=== PATIENT | female | born 1945 | race Caucasian/White ===

== ENCOUNTER → 2017-04-11 | Day surgery (SDC) | payer MEDICARE, BC ==
[~2017-04-11] MED LIST: ACETAMINOPHEN; ACETAMINOPHEN PO; ACUVAIL1 EACH OS; ADVIL200 M2 PO; AMITRYPTYLINE; AMLODIPINE BESYL5 MG PO; ANEXSIA 7.5/3251 TA1 PO; ANTI HISTAMINE; ANTIVERT PO; ARTIFICIAL TEAR15 M9 OU; ARTIFICIAL TEAR15 ML OU; ASPIRIN PO; ASPIRIN81 M2 PO; ATACAND PO; ATIVAN PO; B COMPLEX/FOLIC1 TAB; B-121000 MC1 PO; BACLOFEN10 MG; BACLOFEN10 MG PO; BACLOFEN20 M1 PO; BENADRYL; BENADRYL ALLERG25 M1 PO; BENADRYL25 M3 PO; BUMEX1 MG PO; CALCIUM + D 6001 TA1 PO; CARAFATE1 GM PO; CEFTIN500 MG PO; CELEXA PO; CELEXA20 MG PO; CIPRO PO; CLARITIN10 M2 PO; CYMBALTA PO; DETROL LA; DILAUDID2 MG/ML IJ; DITROPAN PO; DITROPAN XL PO; DITROPAN5 MG PO; DOCUSATE SODIU100 MG PO; DOMPERIDONE; DURAGESIC25 MCG EXT; ENABLEX15 MG PO; ENDOCET 10-3251 TAB PO; ENDOCET PO; ENFOLAST TABLE1 EACH PO; EXCEDRIN MIGRAI1 TA1; FENTANYL; FERRO-TIME325 MG PO; FERROUS SULFATE1 TAB PO; FLEXERIL; FLEXERIL PO; FLONASE 0.05% N16 G1; GABAPENTIN300 M2 PO; GENTLE LAXATIVE10 MG PR; HYDROCODON-ACE1 EAC5 PO; HYDROXYZINE HCL25 M1 PO; IBUPROFEN M200 M1 PO; IBUPROFEN PO; IMITREX PO; IMITREX50 MG PO; IMMODIUM1 MG/5 M1 PO; IMODIUM2 MG PO; IPRATR-ALBUTEROL3 ML INH; IRON1 TA1 PO; IRON325 ( 651 PO; KCL PO; KLONOPIN PO; KLONOPIN0.5 M3 PO; KLONOPIN0.5 MG PO; LAMICTAL PO; LIBRIUM; LIPITOR40 MG PO; LISINOPRIL-HCTZ1 T14 PO; LISINOPRIL20 MG PO; LITHIUM PO; LORATADINE PO; LORAZEPAM0.5 MG PO; LORTAB 10/500 T1 TAB; METAMUCIL1 PKT PO; MIRALAX119 GM; MIRALAX17 G2 PO; MIRTAZAPINE7.5 MG PO; MOBIC PO; NAPROSYN500 MG PO; NAPROXEN250 MG PO; NASONEX17 GM; NEURONTIN PO; NEURONTIN100 MG PO; NEURONTIN300 MG PO; NEXIUM; NEXIUM PO; NEXIUM20 MG PO; NORVASC PO; ONDANSETRON ODT4 MG PO; OXYCODONE HCL10 MG PO; OXYCODONE-ACET1 EAC1 PO; PAIN PUMP; PANTOPRAZOLE SO40 MG PO; PERCOCET10 PO; PERCOLONE5 MG PO; PHENERGAN25 MG PO; POTASSIUM99 M1 PO; PRAVASTATIN SOD40 MG PO; PREMARIN; PREVACID PO; PRILOSEC; PRILOSEC20 MG PO; PRINIVIL20 M1 PO; PROMETHAZINE12.5 MG PO; PROTONIX PO; PROZAC PO; PYRIDIUM PO; REGLAN10 MG PO; REMERON SOLTAB15 M1 PO; REMERON SOLTAB45 MG PO; REMERON30 MG PO; REMERON45 MG PO; SALINE FOR SEN OD; SANCTURA XR PO; SENNA CONCENTR8.6 MG PO; SENNA LAXATIVE1 TAB PO; SENNA PLUS TABL1 TAB PO; SEROQUEL PO; SEROQUEL50 M1 PO; SYSTANE LIQUID15 ML OP; TOPROL XL100 MG PO; VISTARIL PO; VIT B-12 IM; VITAMIN B122500 MCG; XARELTO20 MG PO; ZESTORETIC 20/11 TAB PO; ZOLOFT; [UNRECOGNIZED DRUG - SUPPLY]
--- NOTE | ~2017-04-11 | OR ---
Unit #: [id number] #: [id number] Patient: BEULAH ETIENNE [id number] [address] [address] [id number] MR#: [id number] NAME: BEULAH ETIENNE ROOM: Date of Procedure: 04/11/2017 Admission Date: 04/11/2017 Surgeon: Kana Carpenter M.D. : 1945 Attending Physician: Kana Carpenter M.D. Primary Care Physician: Magaly Riggs D.O. OPERATIVE REPORT JOB NOTE: CC: [facility] PREOPERATIVE DIAGNOSES Back pain, radiculopathy, degenerative disk disease, lumbar spinal stenosis. POSTOPERATIVE DIAGNOSES Back pain, radiculopathy, degenerative disk disease, lumbar spinal stenosis. PROCEDURE PERFORMED Lumbar epidural steroid injection with intravenous sedation and fluoroscopic guidance for needle localization. INDICATIONS FOR PROCEDURE The patient is a 72-year-old female with worsening back and right greater than left lower extremity pain with some dorsiflexion weakness. She has multilevel significant degenerative disk and spine disease. She is a nonsurgical candidate. P.r.n. epidural steroid injections have been helpful. Last injection was done 3 months ago. Prior to that, she had injection done about 8 months before for the same issue. DESCRIPTION OF PROCEDURE The patient was placed in a seated position. Standard monitors were applied. 1 mg of Versed was given for sedation and anxiolysis, which were adequate. Vital signs remained stable. Sterile prep and drape then of the lumbar area was performed. The skin then at the L4-L5 level was localized with 1% lidocaine. An 18-gauge Post.Bid.Shiptead needle was then advanced via loss of resistance technique in toward the epidural space. After confirming proper positioning with fluoroscopy and radiographic contrast, 80 mg of Depo-Medrol and 4 mL of 0.125% bupivacaine were deposited. The patient tolerated the procedure otherwise well and was discharged to the recovery room in stable condition. Dictated by... Lavern Harden/anthony TD: 04/11/2017 22:43 Unit #: [id number] #: [id number] Patient: BEULAH ETIENNE JOB #: [id number] OPERATIVE REPORT Page 1 of 1 X Kana Carpenter MD X PROCEDURE OPERATIVE NOTE
== END | disposition home or self-care (01) ==
LOC: CCSC 10:47
DX: M51.16 Intervertebral disc disorders with radiculopathy, lumbar region (principal); M48.06 Spinal stenosis, lumbar region; I10 Essential (primary) hypertension; E11.9 Type 2 diabetes mellitus without complications; G43.909 Migraine, unspecified, not intractable, without status migrainosus; J44.9 Chronic obstructive pulmonary disease, unspecified; F41.9 Anxiety disorder, unspecified; F32.9 Major depressive disorder, single episode, unspecified; M19.90 Unspecified osteoarthritis, unspecified site; K21.9 Gastro-esophageal reflux disease without esophagitis; Z88.0 Allergy status to penicillin; Z88.2 Allergy status to sulfonamides; Z88.8 Allergy status to other drugs, medicaments and biological substances; Z79.01 Long term (current) use of anticoagulants; Z79.891 Long term (current) use of opiate analgesic; Z79.899 Other long term (current) drug therapy
CPT/HCPCS: 82947; J1040; J2250